=== PATIENT | male | born 1975 | race Caucasian/White ===

== ENCOUNTER 2018-02-14 19:05 | Emergency (ER) | payer OTHER ==
[2018-02-14] MEDS ORDERED: NS 1,000 ML IV ONE (19:20)
--- NOTE | 2018-02-14 19:33 | EDPHY ---
H & P Stated Complaint: NEAR SYNCOPE @ 1800/FASTING X 2 DAYS Time Seen by Provider: 02/14/18 19:20 HPI/ROS: CHIEF COMPLAINT: Near-syncope HISTORY OF PRESENT ILLNESS: The patient presents to the ED after episode of near-syncope. He reports he has been dieting over the past 2 days and has been "fasting" consuming only water and electrolyte supplementation. The patient reportedly developed diarrhea today. Today the patient was overcome with near- syncope, flushing and diaphoresis. The patient presented to the ED for further evaluation. The patient denies any chest pain or shortness of breath. He does complain of some extremity paresthesias. REVIEW OF SYSTEMS: A comprehensive 10 point review of systems is otherwise negative aside from elements mentioned in the history of present illness. Source: Patient Exam Limitations: No limitations - Personal History Current Tetanus Diphtheria and Acellular Pertussis (TDAP): Yes - Medical/Surgical History Hx Asthma: No Hx Chronic Respiratory Disease: No Hx Diabetes: No Hx Cardiac Disease: No Hx Renal Disease: No Hx Cirrhosis: No Hx Alcoholism: No Hx HIV/AIDS: No Hx Splenectomy or Spleen Trauma: No Other PMH: NASAL/SEPTUM REPAIR, FOOT SX - Social History Smoking Status: Never smoked - Physical Exam Exam: General Appearance: Alert, no distress Eyes: Pupils equal and round no pallor or injection ENT, Mouth: Mucous membranes moist Respiratory: There are no retractions, lungs are clear to auscultation Cardiovascular: Regular rate and rhythm Gastrointestinal: Abdomen is soft and nontender, no masses, bowel sounds normal Neurological: A&O, normal motor function, normal sensory exam, normal cranial nerves Skin: Warm and dry, no rashes Musculoskeletal: Neck is supple nontender Extremities: symmetrical, full range of motion Constitutional: Initial Vital Signs Temperature (C) 36.8 C 02/14/18 19:10 Heart Rate 66 02/14/18 19:10 Respiratory Rate 16 02/14/18 19:10 Blood Pressure 117/73 02/14/18 19:10 O2 Sat (%) 99 02/14/18 19:10 O2 Delivery Mode Room Air Allergies/Adverse Reactions: No Known Allergies Allergy (Verified 02/14/18 19:12) Home Medications: Medication Instructions Recorded NK [No Known Home Meds] 02/14/18 Medical Decision Making - Diagnostics EKG Interpretation: EKG: Complete interpretation has been separately recorded in the [employer] archive. Summary impression: Sinus rhythm, rate 57, U waves noted ED Course/Re-evaluation: The patient presents to the ED with an episode of presyncope in the setting of recent fasting and diarrhea. Patient was noted to be neurologically intact upon arrival. Vital signs are stable. EKG demonstrates a sinus rhythm with a questionable UA. Testing in the emergency department included a CBC and comprehensive metabolic panel which demonstrated no significant abnormalities. The patient received 2 L of normal saline. He was kept on a equipment monitor phototypesetting throughout his stay in the emergency department without evidence of arrhythmia or hypotension. I re-evaluated the patient at 8:45 p.m.. He has no acute neurologic complaints and is feeling better. At this point time I do feel the patient can be discharged home have encouraged him to increase his caloric intake and avoid fasting. The patient will be given customary aftercare instructions and return precautions. Differential Diagnosis: Differential diagnosis considered includes dehydration, vasovagal episode, electrolyte abnormality, renal failure, arrhythmia - Data Points Laboratory Results: Laboratory Results 02/14/18 19:30 02/14/18 19:30 02/14/18 02/14/18 02/14/18 19:39 19:30 19:30 WBC RBC Hgb POC Hgb 15.6 gm/dL gm/dL (13.7-17.5) Hct POC Hct 46 % % (40-51) MCV MCH MCHC RDW Plt Count MPV Neut % (Auto) Lymph % (Auto) [place] % (Auto) Eos % (Auto) Baso % (Auto) Nucleat RBC Rel Count Absolute Neuts (auto) Absolute Lymphs (auto) Absolute Monos (auto) Absolute Eos (auto) Absolute Basos (auto) Absolute Nucleated RBC Immature Gran % Immature Gran # POC Sodium 140 mEq/L mEq/L (135-145) Sodium 135 mEq/L mEq/L (135-145) POC Potassium 3.5 mEq/L mEq/L (3.3-5.0) Potassium 3.8 mEq/L mEq/L (3.3-5.0) POC Chloride 100 mEq/L mEq/L (97-110) Chloride 99 mEq/L mEq/L (97-110) Carbon Dioxide 26 mEq/l mEq/l (22-31) Anion Gap 10 mEq/L mEq/L (8-16) POC BUN 21 mg/dL mg/dL (7-23) BUN 22 mg/dL mg/dL (7-23) Creatinine 1.0 mg/dL mg/dL (0.7-1.3) POC Creatinine 1.2 mg/dL mg/dL (0.7-1.3) Estimated GFR > 60 Glucose 108 mg/dL H mg/dL (70-100) POC Glucose 110 mg/dL H mg/dL (70-100) Calcium 9.4 mg/dL mg/dL (8.5-10.4) Magnesium 2.2 mg/dL mg/dL (1.6-2.3) 02/14/18 19:30 WBC 7.86 10^3/uL 10^3/uL (3.80-9.50) RBC 5.10 10^6/uL 10^6/uL (4.40-6.38) Hgb 15.6 g/dL g/dL (13.7-17.5) POC Hgb Hct 45.3 % % (40.0-51.0) POC Hct MCV 88.8 fL fL (81.5-99.8) MCH 30.6 pg pg (27.9-34.1) MCHC 34.4 g/dL g/dL (32.4-36.7) RDW 11.6 % % (11.5-15.2) Plt Count 180 10^3/uL 10^3/uL (150-400) MPV 9.7 fL fL (8.7-11.7) Neut % (Auto) 75.5 % H % (39.3-74.2) Lymph % (Auto) 13.6 % L % (15.0-45.0) [place] % (Auto) 9.0 % % (4.5-13.0) Eos % (Auto) 1.1 % % (0.6-7.6) Baso % (Auto) 0.4 % % (0.3-1.7) Nucleat RBC Rel Count 0.0 % % (0.0-0.2) Absolute Neuts (auto) 5.93 10^3/uL 10^3/uL (1.70-6.50) Absolute Lymphs (auto) 1.07 10^3/uL 10^3/uL (1.00-3.00) Absolute Monos (auto) 0.71 10^3/uL 10^3/uL (0.30-0.80) Absolute Eos (auto) 0.09 10^3/uL 10^3/uL (0.03-0.40) Absolute Basos (auto) 0.03 10^3/uL 10^3/uL (0.02-0.10) Absolute Nucleated RBC 0.00 10^3/uL 10^3/uL (0-0.01) Immature Gran % 0.4 % % (0.0-1.1) Immature Gran # 0.03 10^3/uL 10^3/uL (0.00-0.10) POC Sodium Sodium POC Potassium Potassium POC Chloride Chloride Carbon Dioxide Anion Gap POC BUN BUN Creatinine POC Creatinine Estimated GFR Glucose POC Glucose Calcium Magnesium Medications Given: Discontinued Medications Sodium Chloride (Ns) 1,000 mls @ 0 mls/hr IV EDNOW ONE; Wide Open PRN Reason: Protocol Stop: 02/14/18 19:21 Last Admin: 02/14/18 19:35 Dose: 1,000 mls Point of Care Test Results: Chemistry 02/14/18 19:39 POC Sodium 140 mEq/L mEq/L (135-145) POC Potassium 3.5 mEq/L mEq/L (3.3-5.0) POC Chloride 100 mEq/L mEq/L (97-110) POC BUN 21 mg/dL mg/dL (7-23) POC Creatinine 1.2 mg/dL mg/dL (0.7-1.3) POC Glucose 110 mg/dL H mg/dL (70-100) ISTAT H&H 02/14/18 19:39 POC Hgb 15.6 gm/dL gm/dL (13.7-17.5) POC Hct 46 % % (40-51) Departure - Departure Disposition: Home, Routine, Self-Care Clinical Impression: Vasovagal episode Condition: Good Instructions: Syncope (ED) Additional Instructions: 1. I do recommend increasing your caloric intake as your fasting likely contributed to your symptoms today. 2. Return to the ED immediately for any recurrent symptoms, passing out, severe headache, numbness, weakness or other concerns. Referrals: NONE *PRIMARY CARE P,. [Primary Care Provider] - As per Instructions
[2018-02-14 19:39] LABS: PLATELET COUNT 180 10^3/uL (150-400)
--- NOTE | 2018-02-14 19:42 | CPEKG ---
Test Reason : OPEN Blood Pressure : / mmHG Vent. Rate : 057 BPM Atrial Rate : 057 BPM P-R Int : 175 ms QRS Dur : 092 ms QT Int : 417 ms P-R-T Axes : -11 003 016 degrees QTc Int : 406 ms Sinus rhythm U waves present Confirmed by Bg Rodriguez ([id number]) on 02/14/2018 7:41:37 PM Referred By: Confirmed By:Bg Rodriguez
[2018-02-14 20:52] VITALS: BP 114/66
== END 2018-02-14 20:51 | disposition home or self-care (01) ==
DX: R55 Syncope and collapse (principal); E86.9 Volume depletion, unspecified
CPT/HCPCS: 82435-PO; 82565-PO; 82947-PO; 84132-PO; 84295-PO; 84520-PO; 85014-PO

== ENCOUNTER → 2018-07-20 | Outpatient (CLI) | payer OTHER | LOC: BMCIMAGING 08:21 ==